=== PATIENT | male | born 1950 | race Caucasian/White ===

== ENCOUNTER 2020-07-03 07:57 | Outpatient (CLI) | payer MEDICARE, SELFPAY ==
--- NOTE | ~2020-07-03 | CT_ITS ---
EXAMINATION: CT lung screening EXAM DATE: 07/03/2020 08:14 INDICATION: Personal history of nicotine dependence. TECHNIQUE: Spiral low dose CT of the chest without contrast. Axial, coronal and sagittal images were reviewed. The dose-length product (DLP) for this examination was 122.82 mGy-cm. The exposure was t ailored according to patient size (auto mA exposure control), and iterative reconstruction (ASIR) was used as additional dose reduction technique. There is no prior study for comparison. FINDINGS: There is moderate hyperinflation. Biapical predominantly linear opacities likely scarring. There is moderate emphysema and hyperinflation. Right infrahilar calcifications, calcified lymph nod es with lateral subsegmental right middle lobe atelectasis. Tracheobronchial tree is patent. There is no mediastinal, hilar or axillary lymphadenopathy. There is trace pericardial effusion. There i s no pneumothorax. Heart normal in size. There is mild to moderate coronary arterial calcificatio n, arterial sclerosis. Cervical fusion hardware. Upper abdomen is unremarkable. No osteoblastic o r osteolytic lesions identified. IMPRESSION: Lung-RADS category 2, benign appearance or behavior (<1% chance of malignancy); recommend continued LDCT screening in 1 year. Reviewed, dictated and finalized at location A.
== END 2020-07-03 07:58 | disposition home or self-care (01) ==
PROVIDERS: PCP Emergency Medicine; Visit Provider Emergency Medicine
DX: Z12.2 Encounter for screening for malignant neoplasm of respiratory organs (principal); Z87.891 Personal history of nicotine dependence
CPT/HCPCS: G0297

== ENCOUNTER 2023-03-14 09:19 | Outpatient (CLI) | payer MEDICARE, SELFPAY ==
--- NOTE | ~2023-03-14 | XR_ITS ---
XR shoulder RT min 2V DATE: 03/14/2023 09:46 INDICATION: Right shoulder pain TECHNIQUE: 4 views COMPARISON: January 15, 2016 right shoulder FINDINGS: Status post anterior and interbody spinal surgical fusion at C5-6. Osteopenia. No fracture or dislocation, periosteal reaction or bone destruction of the right shoulder is detected . IMPRESSION: Osteopenia Status post anterior and interbody spinal surgical fusion at C5-6 Reviewed, dictated and finalized at location []
--- NOTE | ~2023-03-14 | XR_ITS ---
XR_[id number]_CR DATE: 03/14/2023 09:46 INDICATION: Neck pain TECHNIQUE: AP, open-mouth, lateral views COMPARISON: None FINDINGS: Status post anterior and interbody surgical spinal fusion at C5-6. C1 and C2 are normally aligned and the odontoid process is intact. There is 2 mm anterolisthesis at C2-3. Cervical interspaces at C2-3, C3-4, C4-5 and C6-7 are relatively well preserved. No fracture or dislocation or locked facet or prevertebral soft tissue swelling is detected. IMPRESSION: Status post anterior and interbody spinal surgical fusion at C5-6 2 mm anterolisthesis at C2-3 Reviewed, dictated and finalized at Location [facility]. Reviewed, dictated and finalized at location []
== END 2023-03-14 09:20 | disposition home or self-care (01) ==
LOC: ANHIMG 09:25
PROVIDERS: PCP Emergency Medicine; Visit Provider Emergency Medicine
DX: M54.2 Cervicalgia (principal); M85.811 Other specified disorders of bone density and structure, right shoulder; Z98.1 Arthrodesis status
CPT/HCPCS: 72040; 73030

== ENCOUNTER 2023-03-18 09:11 | Outpatient (CLI) | payer MEDICARE, SELFPAY ==
--- NOTE | ~2023-03-18 | CT_ITS ---
EXAMINATION: CT lung screening DATE: 03/18/2023 09:34 INDICATION: Smoker. TECHNIQUE: Computed tomography (CT) of the chest was performed without intravenous contrast. The dose -length product was 104.44 mGy-cm. Automated exposure control and iterative reconstruction technique were employed. COMPARISON: 07/03/2020 FINDINGS: Small pericardial effusion. No significant pleural effusion. Mild mediastinal lymphadenopat hy, likely reactive. There is atherosclerosis of the aorta, coronary arteries and renal arteries. The re are calcified granulomas of the spleen which is atrophic. Severe emphysema. There is chronic right upper lobe scarring. There is a new cavitary mass in the right upper lobe measuring 3.8 x 2.7 cm wit h irregular margins. There is a 1.6 x 0.9 cm irregular nodule in the left apex which is changed in mo rphology compared with prior study with more soft tissue component. There were pleural-based nodules of the major fissure on the right measuring up to 3 mm. Calcified granuloma right lung base. Severe e mphysema. There is right middle lobe atelectasis/scarring. IMPRESSION: 1. Category 4B, very suspicious: Consider follow-up low dose CT chest in one month or Pet/CT scan. Pe rcutaneous biopsy would be difficult due to position of the areas of abnormality in the superimposed severe emphysema. Reviewed, dictated and finalized at location L. IMPRESSION: 1. Category 4B, very suspicious: Consider follow-up low dose CT chest in one mo nt or Pet/CT scan. Percutaneous biopsy would be difficult due to position of t he areas of abnormality in the superimposed severe emphysema.
== END 2023-03-18 09:12 | disposition home or self-care (01) ==
PROVIDERS: PCP Emergency Medicine; Visit Provider Emergency Medicine
DX: Z12.2 Encounter for screening for malignant neoplasm of respiratory organs (principal); F17.210 Nicotine dependence, cigarettes, uncomplicated; R91.8 Other nonspecific abnormal finding of lung field
CPT/HCPCS: 71271

== ENCOUNTER 2023-04-17 07:55 | Outpatient (CLI) | payer MEDICARE, SELFPAY ==
--- NOTE | ~2023-04-17 | PE_ITS ---
EXAMINATION: PET skull to mid thigh DATE: 04/17/2023 10:00 INDICATION: Lung nodule TECHNIQUE: Blood glucose level was 98 mg/dL. 9.508 mCi of 18-fluorodeoxyglucose (18-FDG) was administ ered i.v. Low dose computed tomography (CT) images were acquired from the base of the brain to the pr oximal thighs for attenuation correction and anatomic localization. Positron emission tomography (PET ) images were acquired in the same distribution beginning 72 minutes after injection. Images includin g fused PET/CT images were reconstructed in axial, coronal, and sagittal planes. Automated exposure c ontrol technique was employed. The dose-length product was 545.11mGy-cm. COMPARISON: CT chest dated 03/18/[address] abdomen and pelvis dated 11/10/2017 FINDINGS: Head/neck: There is symmetric increased activity in the oral cavity, palatine tonsils, parotid glands, submandi bular glands, laryngeal muscles, rectus capitis muscles and ocular muscles without CT correlate, like ly physiologic. No pathologically enlarged cervical lymphadenopathy or suspicious foci of increased F DG uptake in the visualized head or neck. Chest: Moderate emphysema. Mild FDG uptake with maximal SUV of 4.0 associated with a 1.5 cm spiculated nodul e at the left apex. More prominent increased FDG uptake with maximal SUV of 19 associated with the as ymmetrically laterally thickened wall of the 3.6 cm cavitary lesion in the right upper lobe. Both thi s and the left apical lesion are unchanged when compared with the recent chest CT. Moderate increased FDG uptake with maximal SUV of 6.8 associated with a 6 mm perihilar nodule in the right upper lobe. Chronic right middle lobe collapse. Calcified nodules in the right lower lobe and calcified right hil ar lymph nodes consistent with old granulomatous disease. No pleural effusion. Heart size is normal. Small pericardial effusion. Atherosclerotic coronary artery calcifications. Thoracic aorta is normal in caliber. No pathologically enlarged or FDG avid thoracic lymphadenopathy. Abdomen/pelvis/proximal thighs: Physiologic renal accumulation and excretion of FDG activity in the kidneys, bladder and along portio ns of ureters. Calcifications of the bilateral renal sofia which appear predominantly for not exclusiv yandy due to atherosclerotic calcifications although nonobstructing nephrolithiasis could not be exclud ed. Normal degree and heterogenous pattern of increased uptake throughout the liver without radiologi c correlate or dominant FDG avid lesion. Splenic calcifications consistent with old granulomatous dis ease. Gallbladder, pancreas and bilateral adrenal glands are normal. Numerous diverticula predominant ly along the sigmoid colon but without adjacent comparison to suggest diverticulitis. Mild uptake sca ttered throughout the bowels without radiologic correlate, also likely physiologic. Normal appendix. Chronic haziness to the mesenteric fat in the left abdomen appears unchanged since 11/10/2017. No other abnormal foci of increased FDG uptake or pathologically enlarged lymphadenopathy in the abdomen, pel vis or proximal thighs. Musculoskeletal: There are few scattered small foci of subtly increased marrow activity. These include a lesion at the iliac side of the anterior left sacroiliac joint with maximal SUV of 3.7 and with suggestion of subt le increased density to the marrow. Similarly there is focal asymmetric increased density to the jessica ow fat attenuation the subtrochanteric proximal left femur with maximal SUV of 2.6. Additional lesion s at the intratrochanteric left femur with maximal SUV of 2.0 and at the left sacral ala with maximal SUV of 2.8. There is a focus of moderate increased uptake with maximal SUV of 7.0 cm at the left melanie rnoclavicular joint which is without radiologic correlate and more likely arthritic in etiology. IMPRESSION: 1. Prominent increased FDG uptake associated with the asymmetric thickened porti
[2023-04-17 08:15] LABS: Glucose Point of Care 98 mg/dl (65-105)
== END 2023-04-17 07:56 | disposition home or self-care (01) ==
PROVIDERS: PCP Emergency Medicine; Visit Provider Emergency Medicine
DX: R91.8 Other nonspecific abnormal finding of lung field (principal)
CPT/HCPCS: 78815; A9552